=== PATIENT | female | born 1940 | race Caucasian/White ===

== ENCOUNTER → 2017-03-31 | Outpatient (CLI) | payer MEDICARE ==
[~2017-03-31] MED LIST: ALPR0.5T3 PO; AMLO2.5T PO; ASPI81 PO; ASPI81TA23 PO; CALCTAB19 PO; CALTTAB6; CHLORHEXIDINE GLUCONATE 2 % 1 PACK (2 CLOTHS) TOPICAL PRN; FISH1200; FURO1TAB93 PO; FURO40TA PO; HYDR-3516 PO; INSULIN HUMAN REGULAR 1,000 UNITS/10 ML VIAL SQ PRN; LACTATED RINGER'S 1000 ML IV PRN; LORTA5 PO; LOSA100T; LOSA100T PO; LOVA20TA PO; MELO7.5T PO; MELO7.5T27 PO; METOPROLOL TARTRATE 25 MG TAB PO PRN; MEVA40TA6 PO; POVIDONE IODINE 5% (ANTISEPSIS KIT) 4 APPLICATIONS EACH NARE PRN; SODIUM CHLORID 0.9% 500 ML IV PRN; TELM1TAB2 PO; TOPR50TA PO; URSO300C2 PO; [UNRECOGNIZED DRUG - CODE] PO; hydrALAZINE HCL 20 MG/ML VIAL IV ONE
--- NOTE | 2017-03-31 15:23 | PD.PROCEDR ---
GI Procedure PROCEDURE PERFORMED Endoscopic ultrasound INDICATION FOR PROCEDURE Dilated common bile duct PROCEDURE: The procedure, risks and benefits were discussed with Ms. Schneider and informed consent was obtained. Anesthesia sedated her with Diprivan. She was placed in the left lateral decubitus position. Endoscopic ultrasound: The Pentax videoscope was introduced through the oropharynx and advanced to the second portion of the duodenum FINDINGS: The pancreatic parenchyma appeared to be unremarkable from head to tail with a normal pancreatic duct The common bile duct appeared to be dilated to about 9 mm with no filling defects and no irregularities with a gentle tapered towards the ampulla which appeared to be unremarkable No lymphadenopathy noted No gallbladder observed ESTIMATED BLOOD LOSS: None SPECIMENS REMOVED: None COMPLICATIONS: None IMPRESSION: Dilated common bile duct with no additional pathology PLAN: Follow-up in clinic in 3-4 weeks Ralph Parr MD Mar 31, 2017 15:23
[2017-03-31 15:50] VITALS: BP 153/61; PULSE 61; RESP 16; TEMP 96.6; O2SAT 96
--- NOTE | 2017-04-01 09:36 | EKG ---
Date Performed: 03/31/2017 Time Performed: 13:33:54 PTAGE: 77 years EKG: SINUS BRADYCARDIA MARKED LEFT AXIS DEVIATION VOLTAGE CRITERIA FOR LVH ABNORMAL ECG PREVIOUS TRACING : 07/31/2004 22.07 Since prior tracing, sinus rate is slower. DOCTOR: Jarad Cunningham Interpretating Date/Time 04/01/2017 09:34:31
== END ==
LOC: HSDC 12:46
PROVIDERS: ATTEND Internal Medicine Gastroenterology
DX: K83.8 Other specified diseases of biliary tract (principal); I10 Essential (primary) hypertension
CPT/HCPCS: 43259; 93005; J0360